=== PATIENT | male | born 1965 | race Caucasian/White ===

== ENCOUNTER 2019-04-23 21:19 | Emergency (ER) | payer OTHER ==
[~2019-04-23] VITALS: Ht 175.3 cm; Wt 113.4 kg
[~2019-04-23 21:19] MED LIST: ALBU90OI INH; ALBU90OI61 INH; BUPR100 PO; Benadryl 50 mg50 MG PO; CEPH500 PO; CODGUAEL PO; CYCL10 PO; Epipen0.3 MG/0.3 IM; FLUO20 PO; Fluoxetine HCl20 M1 PO; HYDACE5 PO; LORA1 PO; LOSHYD100 PO; METPRE4DP PO; MORP15ER PO; MORP30ER PO; Monodox100 MG PO; NAPR550 PO; OLME20-12. PO; OLME40 PO; OXYACE5T PO; OXYC30 PO; OXYC5 PO; PENVK500 PO; PROCODE120 PO; PROZAC20 MG PO; Percocet 5-3251 EACH PO; Prednisone20 MG PO; QUET100 PO; QUET25 PO; RXCYCL10 PO; SOMA350 MG PO; SYMBIAX; SYMBYAX; Symbyax 12-251 EACH PO; Valium5 MG PO
== END 2019-04-23 23:11 | disposition home or self-care (01) ==
LOC: ER 21:19
DX: S91.215A Laceration without foreign body of left lesser toe(s) with damage to nail, initial encounter (principal); W22.8XXA Striking against or struck by other objects, initial encounter; Z88.8 Allergy status to other drugs, medicaments and biological substances; Z88.5 Allergy status to narcotic agent; Z79.899 Other long term (current) drug therapy; Z79.891 Long term (current) use of opiate analgesic; I10 Essential (primary) hypertension; Z87.891 Personal history of nicotine dependence
CPT/HCPCS: 11750; 90471; 90714; 99282-25

== ENCOUNTER → 2019-05-19 | Outpatient (CLI) | payer OTHER ==
[2019-05-19 19:44] LABS: Body Fluid Crystals NEG (NEGATIVE)
== END | disposition home or self-care (01) ==
LOC: LAB SHORT 19:10 → LAB 19:10
PROVIDERS: Nurse Practitioner Family
DX: M25.562 Pain in left knee (principal)
CPT/HCPCS: 89060